=== PATIENT | female | born 1995 | race African-American/Black ===

== ENCOUNTER 2017-01-08 09:53 | Emergency (ER) | payer SELFPAY ==
--- NOTE | 2017-01-08 10:34 | ER Document Report ---
ED General - General Chief Complaint: Abdominal Pain Stated Complaint: ABDOMINAL PAIN Notes: Patient is a 21-year-old female without past medical history who presents with 2 weeks of intermittent diffuse generalized abdominal pain. Does describe pain is intermittent, cramping, moderate discomfort. Nothing improves or worsens her pain. No cyst is had some associated mild nausea without persistent vomiting or diarrhea. No vaginal bleeding or discharge. States her last menstrual period was sometime in November which she believes is atypical for her. No dysuria. No history of abdominal surgeries. She has not seen her primary care doctor regarding today's concerns. TRAVEL OUTSIDE OF THE [place] IN LAST 30 DAYS: No - Related Data Allergies/Adverse Reactions: aspirin Allergy (Verified 01/08/17 10:02) Penicillins Allergy (Verified 01/08/17 10:02) Past Medical History - General Information source: Patient - Social History Smoking Status: Never Smoker Frequency of alcohol use: None Drug Abuse: None Lives with: Spouse/Significant other Family History: Reviewed & Not Pertinent, Arthritis, CVA, DM, Hypertension, Malignancy Patient has suicidal ideation: No Patient has homicidal ideation: No Pulmonary Medical History: Reports: Hx Asthma Endocrine Medical History: Reports: Hx Hypothyroidism Renal/ Medical History: Denies: Hx Peritoneal Dialysis Past Surgical History: Reports: Hx Oral Surgery - Immunizations Immunizations up to date: Yes Hx Diphtheria, Pertussis, Tetanus Vaccination: Yes Review of Systems - Review of Systems Notes: Constitutional: Negative for fever. HENT: Negative for sore throat. Eyes: Negative for visual changes. Cardiovascular: Negative for chest pain. Respiratory: Negative for shortness of breath. Gastrointestinal: Positive for abdominal pain, negative for vomiting or diarrhea. Genitourinary: Negative for dysuria. Musculoskeletal: Negative for back pain. Skin: Negative for rash. Neurological: Negative for headaches, weakness or numbness. 10 point ROS negative except as marked above and in HPI. Physical Exam - Vital signs Vitals: Temp Pulse Resp BP Pulse Ox 98.4 F 127 H 20 110/77 98 01/08/17 10:02 01/08/17 10:02 01/08/17 10:02 01/08/17 10:02 01/08/17 10:02 Patient was not tachycardic to 127 at the time of my assessment. Heart rate was 101 Notes: PHYSICAL EXAMINATION: GENERAL: Well-appearing, well-nourished and in no acute distress. HEAD: Atraumatic, normocephalic. EYES: Pupils equal round and reactive to light, extraocular movements intact, sclera anicteric, conjunctiva are normal. ENT: nares patent, oropharynx clear without exudates. Moist mucous membranes. NECK: Normal range of motion, supple without lymphadenopathy LUNGS: Breath sounds clear to auscultation bilaterally and equal. No wheezes rales or rhonchi. HEART: Regular rate and rhythm without murmurs ABDOMEN: Soft, nontender, normoactive bowel sounds. No guarding, no rebound. No masses appreciated. EXTREMITIES: Normal range of motion, no pitting or edema. No cyanosis. NEUROLOGICAL: No focal neurological deficits. Moves all extremities spontaneously and on command. PSYCH: Normal mood, normal affect. SKIN: Warm, Dry, normal turgor, no rashes or lesions noted. Course - Re-evaluation Re-evalutation: 01/08/17 10:32 Presentation of an overall well-appearing female in no acute distress complaining of intermittent generalized abdominal pain although she has no pain at time of my assessment. She has no pain on palpation of the abdomen in any quadrant. No dysuria, vaginal bleeding or discharge. Differential considerations include ovulatory pain, early , irritable bowel syndrome. Patient has no focal right upper quadrant pain or epigastric pain suggest acute biliary pathology or acute pancreatitis. She is no focal right lower quadrant pain to suggest an acute appendicitis and her clinical history is likewise not clinically consistent with this history. Likewise she has again no persistent lower abdominal pain to suggest a tubo-ovarian abscess, ovarian torsion. 1348-urinalysis demonstrates findings consistent with an acute urinary tract infection. She does not have any constitutional symptoms or flank tenderness to suggest acute pyelonephritis. She will be started on cephalexin. Her test is also positive. A transvaginal ultrasound demonstrates a possible early intrauterine . However, she will be asked to return in 48 hours for repeat quantitative beta hCG to ensure appropriate increase.At this time will discharge with return precautions and follow-up recommendations. Verbal discharge instructions given a the bedside and opportunity for questions given. Medication warnings reviewed. Patient is in agreement with this plan and has verbalized understanding of return precautions and the need for primary care follow-up in the next 24-72 hours. - Vital Signs Vital signs: Temp Pulse Resp BP Pulse Ox 98.4 F 127 H 20 110/77 98 01/08/17 10:02 01/08/17 10:02 01/08/17 10:02 01/08/17 10:02 01/08/17 10:02 - Laboratory Result Diagrams: 01/08/17 10:49 Laboratory results interpreted by me: 01/08/17 01/08/17 10:49 10:49 Beta HCG, Quant 3288.70 H Urine Blood MODERATE H Ur Leukocyte Esterase LARGE H Discharge - Discharge Clinical Impression: Early stage of Urinary tract infection Qualifiers: Urinary tract infection type: acute cystitis Hematuria presence: without hematuria Qualified Code(s): N30.00 - Acute cystitis without hematuria Condition: Good Disposition: HOME, SELF-CARE Additional Instructions: You need to return to the ED or the women's health clinic in 48 hours for a recheck of your hormone level. The ultrasound is unable to see anything at this time because you are too early in your . Please return if you develop severe abdominal pain, bleeding that goes through more than 2 pads for more than 2 hours, pass out, or have any other symptoms that are concerning to you. Please follow-up closely with your OBGYN regarding todays visit. Your urine shows findings consistent with a urinary tract infection. Please take all the antibiotics as directed even if your symptoms have improved. Please follow-up with your primary care physician as needed. Return to emergency room if you develop fever >101F, persistent vomiting, become lethargic , have severe pain in your sides, or any other symptoms that are concerning to you. Prescriptions: Cephalexin Monohydrate [Keflex 500 mg Capsule] 500 mg PO QID #20 capsule Forms: Follow-Up Laboratory Testing
[2017-01-08 11:15] LABS: APPEARANCE,URINE CLOUDY; BILIRUBIN,URINE NEGATIVE (NEGATIVE); GLUCOSE, URINE NEGATIVE (NEGATIVE); KETONES,URINE NEGATIVE (NEGATIVE); LEUKOCYTE ESTERASE,URINE LARGE (NEGATIVE); NITRITE,URINE NEGATIVE (NEGATIVE); PROTEIN,URINE NEGATIVE (NEGATIVE); URINE SPECIFIC GRAVITY 1.018; UROBILINOGEN,URINE NEGATIVE mg/dL (<2.0)
[2017-01-08] MEDS ORDERED: CEPHALEXIN 500 MG CAPSULE PO ONE (11:17)
[2017-01-08 11:20] LABS: ALANINE AMINOTRANSFERASE 38 U/L (9-52); ALBUMIN 3.9 g/dL (3.5-5.0); ALKALINE PHOSPHATASE 70 U/L (38-126); ANION GAP 11 (5-19); ASPARTATE AMINO TRANSFERASE 27 U/L (14-36); BILIRUBIN,DIRECT 0.3 mg/dL (0.0-0.4); BILIRUBIN,TOTAL 0.3 mg/dL (0.2-1.3); BLOOD UREA NITROGEN 10 mg/dL (7-20); CALCIUM 9.7 mg/dL (8.4-10.2); CARBON DIOXIDE 26 mmol/L (22-30); CHLORIDE 105 mmol/L (98-107); CREATININE RESULT 0.75 mg/dL (0.52-1.25); GLUCOSE 99 mg/dL (75-110); POTASSIUM 4.1 mmol/L (3.6-5.0); SODIUM 142.3 mmol/L (137-145); TOTAL PROTEIN 7.3 g/dL (6.3-8.2)
[2017-01-08 14:09] VITALS: BP 136/83
== END 2017-01-08 14:09 | disposition home or self-care (01) ==
LOC: ER 09:53
DX: O23.10 Infections of bladder in pregnancy, unspecified trimester (principal); O26.899 Other specified pregnancy related conditions, unspecified trimester; R10.84 Generalized abdominal pain; R11.0 Nausea; O99.519 Diseases of the respiratory system complicating pregnancy, unspecified trimester; J45.909 Unspecified asthma, uncomplicated; Z3A.00 Weeks of gestation of pregnancy not specified; Z88.6 Allergy status to analgesic agent; Z88.0 Allergy status to penicillin
CPT/HCPCS: 36415; 76817; 80053; 81001; 84702; 87086; 87088; 87186; 99284

== ENCOUNTER 2017-02-01 22:23 | Observation (INO) | payer MEDICAID ==
[2017-02-01] MEDS ORDERED: ONDANSETRON HCL INJ/PF 4 MG/2 ML SDV IV ONE (23:24)
[2017-02-01] MEDS: NORMAL SALINE 1000 ML 1,000 ML IV PRN (23:44)
--- NOTE | 2017-02-01 23:50 | ER Document Report ---
ED General - General Chief Complaint: Vag Bleeding, +preg <12wks Stated Complaint: VAGINAL BLEEDING Time Seen by Provider: 02/01/17 23:24 Information source: Patient, Emergency Med Personnel TRAVEL OUTSIDE OF THE [place] IN LAST 30 DAYS: No - HPI Notes: Patient is a 21-year-old black female presents emergency department with report of being 9 weeks and presents with heavy vaginal bleeding and midline does help pelvic pain that started 2 hours prior to arrival. Patient reports minimal vaginal spotting before that time. Patient had blood pressure 99 systolic on initial arrival, then she went to sit on the toilet had moderate amount of blood clots and felt nauseated and vomited once without blood, then was near syncopal. Staff was called into the room and we transitioned the patient to the bed where measured blood pressure was 124 systolic. Patient reports mild posterior pelvic pain. Patient is a With care at the health department, no prior ultrasound or other blood studies performed. - Related Data Allergies/Adverse Reactions: aspirin Allergy (Verified 01/08/17 10:02) Penicillins Allergy (Verified 01/08/17 10:02) Past Medical History - General Information source: Patient - Social History Smoking Status: Never Smoker Frequency of alcohol use: None Drug Abuse: None Lives with: Family Family History: Reviewed & Not Pertinent, Arthritis, CVA, DM, Hypertension, Malignancy Pulmonary Medical History: Reports: Hx Asthma Endocrine Medical History: Reports: Hx Hypothyroidism Renal/ Medical History: Denies: Hx Peritoneal Dialysis Past Surgical History: Reports: Hx Oral Surgery - Immunizations Immunizations up to date: Yes Hx Diphtheria, Pertussis, Tetanus Vaccination: Yes Review of Systems - Review of Systems Notes: REVIEW OF SYSTEMS: CONSTITUTIONAL : Denies fever, chills, or sweats. Denies recent illness. EENT: Denies eye, ear, throat, or mouth pain or symptoms. Denies nasal or sinus congestion or discharge. Denies throat, tongue, or mouth swelling or difficulty swallowing. CARDIOVASCULAR: Denies chest pain. Denies palpitations or racing or irregular heart beat. Denies ankle edema. RESPIRATORY: Denies cough, cold, or chest congestion. Denies shortness of breath, difficulty breathing, or wheezing. GASTROINTESTINAL: Denies abdominal distention. Denies diarrhea. Denies blood in vomitus, stools, or per rectum. Denies black, tarry stools. Denies constipation. GENITOURINARY: Denies difficulty urinating, painful urination, burning, frequency, blood in urine, or discharge. FEMALE GENITOURINARY: Denies vaginal discharge or odor. MUSCULOSKELETAL: Denies back or neck pain or stiffness. Denies joint pain or swelling. SKIN: Denies rash, lesions or sores. HEMATOLOGIC : Denies easy bruising or bleeding. LYMPHATIC: Denies swollen, enlarged glands. NEUROLOGICAL: Denies confusion or altered mental status. Denies passing out or loss of consciousness. Denies dizziness or lightheadedness. Denies headache. Denies paralysis or loss of use of either side. Denies problems with gait or speech. Denies sensory loss, numbness, or tingling. Denies seizures. Patient reports generalized weakness. PSYCHIATRIC: Denies anxiety or stress. Denies depression, suicidal ideation, or homicidal ideation. ALL OTHER SYSTEMS REVIEWED AND NEGATIVE. Dictation was performed using [email or web address] voice recognition software Physical Exam - Vital signs Vitals: Temp Pulse BP Pulse Ox 98.5 F 124 H 98/66 L 100 02/01/17 22:31 02/01/17 22:31 02/01/17 22:31 02/01/17 22:31 - Notes Notes: PHYSICAL EXAMINATION: GENERAL: Well-appearing, well-nourished and in no acute distress. HEAD: Atraumatic, normocephalic. EYES: Pupils equal round and reactive to light, extraocular movements intact, conjunctiva are normal. ENT: Nares patent, oropharynx clear without exudates. Moist mucous membranes. NECK: Normal range of motion, supple without lymphadenopathy LUNGS: Breath sounds clear to auscultation bilaterally and equal. No wheezes rales or rhonchi. HEART: Regular rate and rhythm without murmurs ABDOMEN: Soft, nondistended abdomen. No guarding, no rebound. No masses appreciated. Female : Tender to the lower midline pelvic region. Moderate bleeding and clots noted on exam. Cervix is nulliparous but slightly open and tender on exam. There is some uterine tenderness also noted. No adnexal mass or obvious tenderness noted. Musculoskeletal: Normal range of motion, no pitting or edema. No cyanosis. Mild pain to the posterior midline lower back. No CVA tenderness. NEUROLOGICAL: Cranial nerves grossly intact. Normal speech, normal gait. Normal sensory, motor exams PSYCH: Normal mood, normal affect. SKIN: Warm, Dry, normal turgor, no rashes or lesions noted. Course - Re-evaluation Re-evalutation: 02/01/17 23:55 Normal saline bolus given. Patient given Zofran and Dilaudid for pain. 02/02/17 02:52 Patient with continued but improved bleeding. Patient was given 2 L normal saline and her systolic blood pressure was 102 on repeat exam although pulse rate was in the 90s. Patient still complained of pain and reports soaking approximately 8 pads while in the emergency department with continued bleeding. Ultrasound studies were reviewed. Patient shows a mild anemia, which may not reflect the full extent of her acute blood loss. Blood type O+ Type and screen was ordered on initial evaluation. No obvious clinical Suspicion for ectopic . Discussion was undertaken with the patient and her family that she may need a D& C performed. She last ate at 1900 and has been kept n.p.o. Discussion was undertaken with Dr. Abhijit White who agrees to evaluate patient further in the emergency department. 02/02/17 02:52 - Vital Signs Vital signs: Temp Pulse Resp BP Pulse Ox 98.2 F 90 23 H 99/56 L 98 02/02/17 02:00 02/02/17 02:00 02/02/17 02:01 02/02/17 02:43 02/02/17 03:00 - Laboratory Result Diagrams: 02/02/17 00:00 02/02/17 00:00 Laboratory results interpreted by me: 02/02/17 02/02/17 00:00 00:00 WBC 15.5 H Hgb 9.8 L Hct 32.1 L MCV 77 L MCH 23.4 L MCHC 30.4 L RDW 16.9 H Absolute Neutrophils 11.3 H Glucose 112 H Albumin 3.2 L Beta HCG, Quant 36391.00 H Discharge - Discharge Clinical Impression: Incomplete miscarriage with blood clot, Near syncope Anemia Qualifiers: Anemia type: unspecified type Qualified Code(s): D64.9 - Anemia, unspecified Condition: Stable Disposition: ADMITTED OBSERVATION Admitting Provider: [facility] Admitted: Post
[2017-02-01] MEDS ORDERED: HYDROMORPHONE HCL INJ/PF 2 MG/ML AMPULE IV ONE (23:53)
[2017-02-02 00:28] LABS: PROTHROMBIN TIME 13.9 SEC (11.4-15.4)
[2017-02-02 00:36] LABS: ALANINE AMINOTRANSFERASE 29 U/L (9-52); ALBUMIN 3.2 g/dL (3.5-5.0); ALKALINE PHOSPHATASE 51 U/L (38-126); ANION GAP 8 (5-19); ASPARTATE AMINO TRANSFERASE 21 U/L (14-36); BILIRUBIN,DIRECT 0.3 mg/dL (0.0-0.4); BILIRUBIN,TOTAL 0.3 mg/dL (0.2-1.3); BLOOD UREA NITROGEN 13 mg/dL (7-20); CALCIUM 8.8 mg/dL (8.4-10.2); CARBON DIOXIDE 24 mmol/L (22-30); CHLORIDE 107 mmol/L (98-107); CREATININE RESULT 0.81 mg/dL (0.52-1.25); GLUCOSE 112 mg/dL (75-110); POTASSIUM 4.3 mmol/L (3.6-5.0); SODIUM 139.2 mmol/L (137-145); TOTAL PROTEIN 6.3 g/dL (6.3-8.2)
[2017-02-02] MEDS: NORMAL SALINE 1000 ML 1,000 ML IV PRN (00:54)
[2017-02-02 01:14] LABS: ABSOLUTE BASOPHILS # (AUTO) 0.1 10^3/uL (0.0-0.2); ABSOLUTE LYMPHOCYTES (AUTO) 3.3 10^3/uL (0.5-4.7); ABSOLUTE MONOCYTES (AUTO) 0.8 10^3/uL (0.1-1.4); ABSOLUTE NEUT (AUTO) 11.3 10^3/uL (1.7-8.2); BASOPHILS % (AUTO) 0.4 % (0-2); EOSINOPHILS % (AUTO) 0.1 % (0-6); HEMATOCRIT 32.1 % (36.0-47.0); HEMOGLOBIN 9.8 g/dL (12.0-15.5); HGB HCT DIFFERENCE -2.7; LYMPHOCYTES % (AUTO) 21.2 % (13-45); MEAN CORPUSCULAR HEMOGLOBIN 23.4 pg (27.0-33.4); MEAN CORPUSCULAR HGB CONC 30.4 g/dL (32.0-36.0); MEAN CORPUSCULAR VOLUME 77 fl (80-97); MONOCYTES % (AUTO) 5.2 % (3-13); RED BLOOD COUNT 4.17 10^6/uL (3.72-5.28); RED CELL DISTRIBUTION WIDTH 16.9 % (11.5-14.0); SEGMENTED NEUTROPHILS % (AUTO) 73.1 % (42-78); WHITE BLOOD COUNT 15.5 10^3/uL (4.0-10.5)
--- NOTE | 2017-02-02 01:24 | RADIOLOGY REPORT (SQ) ---
EXAM DESCRIPTION: U/S OB TRANSVAG W/DOPPLER COMPLETED DATE/TIME: 02/02/2017 1:07 am REASON FOR STUDY: 9 weeks with bleeding, near syncope COMPARISON: 01/08/2017. TECHNIQUE: Transvaginal and transabdominal static and realtime grayscale images acquired of the pelv is. Additional selected spectral and color Doppler images recorded. All images stored on PACs. BHCG: Pending. LIMITATIONS: None. FINDINGS: UTERUS: No visualized intrauterine . Heterogeneous thickened endometrial cavity measuring 3.0 cm with minimal vascularity demonstrated with color Doppler ultrasound. There is a sma ll hypoechoic component, nonspecific measuring up to 0.6 cm in mean diameter. No yolk sac. No pole. No direct evidence of a viable gestation. RIGHT ADNEXA: Normal 2.8 cm ovary with normal vascular flow. No adnexal free fluid. No adnexal masses. LEFT ADNEXA: Not visualized. FREE FLUID: Minimal. OTHER: No other significant finding. IMPRESSION: 3.0 cm heterogeneous thickened endometrial cavity may indicate hemorrhage/clot. NO VISU ALIZED INTRA- OR EXTRAUTERINE . Differential diagnosis includes occult early viable gestation, gestational loss, or occult ectopic ge station. ECTOPIC CANNOT BE EXCLUDED. FOLLOW-UP ULTRASOUND AND SERIAL BHCG LEVELS STRONGLY RECOMMENDED TO ACCURATELY ASSESS STATU S. TECHNICAL DOCUMENTATION: JOB ID: [id number] [employer]- All Rights Reserved
[2017-02-02] MEDS ORDERED: POTASSI CL 20 MEQ/1/2NS 1L 1,000 ML IV ONE (01:45)
[2017-02-02] MEDS ORDERED: HYDROMORPHONE HCL INJ/PF 2 MG/ML AMPULE IV ONE (02:16)
[2017-02-02] MEDS ORDERED: RINGERS SOLUTION,LACTATED 1,000 ML IV PRN (04:48)
[2017-02-02] MEDS ORDERED: HYDROMORPHONE HCL INJ/PF 2 MG/ML AMPULE IV PRN (04:49)
[2017-02-02] MEDS ORDERED: MISOPROSTOL 0.2 MG TABLET ONE (04:50)
[2017-02-02] MEDS ORDERED: MISOPROSTOL 0.2 MG TABLET PO ONE (05:00)
[2017-02-02 07:05] LABS: ABSOLUTE BASOPHILS # (AUTO) 0.1 10^3/uL (0.0-0.2); ABSOLUTE LYMPHOCYTES (AUTO) 3.7 10^3/uL (0.5-4.7); ABSOLUTE MONOCYTES (AUTO) 0.7 10^3/uL (0.1-1.4); ABSOLUTE NEUT (AUTO) 9.8 10^3/uL (1.7-8.2); BASOPHILS % (AUTO) 0.7 % (0-2); EOSINOPHILS % (AUTO) 0.1 % (0-6); HEMATOCRIT 30.3 % (36.0-47.0); HEMOGLOBIN 9.4 g/dL (12.0-15.5); HGB HCT DIFFERENCE -2.1; LYMPHOCYTES % (AUTO) 25.6 % (13-45); MEAN CORPUSCULAR HEMOGLOBIN 24.3 pg (27.0-33.4); MEAN CORPUSCULAR VOLUME 79 fl (80-97); RED BLOOD COUNT 3.86 10^6/uL (3.72-5.28); RED CELL DISTRIBUTION WIDTH 16.7 % (11.5-14.0); SEGMENTED NEUTROPHILS % (AUTO) 68.6 % (42-78); WHITE BLOOD COUNT 14.3 10^3/uL (4.0-10.5)
[2017-02-02 07:16] LABS: ANION GAP 8 (5-19); BLOOD UREA NITROGEN 11 mg/dL (7-20); CALCIUM 8.1 mg/dL (8.4-10.2); CARBON DIOXIDE 25 mmol/L (22-30); CHLORIDE 105 mmol/L (98-107); CREATININE RESULT 0.71 mg/dL (0.52-1.25); GLUCOSE 102 mg/dL (75-110); POTASSIUM 4.2 mmol/L (3.6-5.0); SODIUM 138.2 mmol/L (137-145)
--- NOTE | 2017-02-02 09:46 | PDOC PROGRESS REPORT ---
Subjective Subjective:: Pt reports feeling better. 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, minimal pain Physical Exam - Physical Exam Vital Signs: Temp Pulse Resp BP Pulse Ox 98.0 F 75 16 98/53 L 100 02/02/17 09:09 02/02/17 09:09 02/02/17 09:09 02/02/17 09:09 02/02/17 09:09 Intake & Output 02/01/17 02/02/17 02/03/17 06:59 06:59 06:59 Output Total 200 Balance -200 Weight 126.8 kg General appearance: PRESENT: no acute distress, cooperative, well-developed Result Laboratory Results: 02/02/17 06:22 02/02/17 06:22 02/02/17 02/02/17 06:22 06:22 WBC 14.3 H RBC 3.86 Hgb 9.4 L Hct 30.3 L MCV 79 L MCH 24.3 L MCHC 31.0 L RDW 16.7 H Plt Count 233 Seg Neutrophils % 68.6 Lymphocytes % 25.6 Monocytes % 5.0 Eosinophils % 0.1 Basophils % 0.7 Absolute Neutrophils 9.8 H Absolute Lymphocytes 3.7 Absolute Monocytes 0.7 Absolute Eosinophils 0.0 Absolute Basophils 0.1 Sodium 138.2 Potassium 4.2 Chloride 105 Carbon Dioxide 25 Anion Gap 8 BUN 11 Creatinine 0.71 Est GFR ( Amer) > 60 Est GFR (Non-Af Amer) > 60 Glucose 102 Calcium 8.1 L Impressions: Transvaginal US 02/01/17 23:43 IMPRESSION: 3.0 cm heterogeneous thickened endometrial cavity may indicate hemorrhage/clot. NO VISUALIZED INTRA- OR EXTRAUTERINE . Differential diagnosis includes occult early viable gestation, gestational loss , or occult ectopic gestation. ECTOPIC CANNOT BE EXCLUDED. FOLLOW-UP ULTRASOUND AND SERIAL BHCG LEVELS STRONGLY RECOMMENDED TO ACCURATELY ASSESS STATUS. Assessment & Plan - Diagnosis (1) Incomplete miscarriage with blood clot Is this a current diagnosis for this admission?: Yes (2) Anemia Qualifiers: Anemia type: unspecified type Qualified Code(s): D64.9 - Anemia, unspecified Is this a current diagnosis for this admission?: Yes - Time Time Spent with patient: Less than 15 minutes Critical Time spent with patient: Less than 15 minutes Anticipated discharge: Home Within: within 24 hours - Will d/c home and have pt f/u with Dr White in 1 week SAB precautions given
[2017-02-02 12:56] VITALS: BP 93/46
--- NOTE | 2017-03-22 13:34 | DISCHARGE SUMMARY E ---
Discharge Summary NAME: LEVON MILTON : 1995 AGE: 21Y ADMITTED: 02/02/2017 DISCHARGED: 02/02/2017 REASON FOR ADMISSION: Patient with 10 week spontaneous miscarriage with heavy vaginal bleeding. HISTORY AND PHYSICAL: See Dr. White's History and Physical from 02/01/2017 for full details. HOSPITAL COURSE: The patient is admitted to the Women's Surgical Floor for her care. She is given a total of approximately 800 mL of Cytotec to help the uterus clam down and resolve the bleeding. Following administration of the Cytotec, patient's bleeding goes from heavy to minimal. Patient's hemoglobin is stable. She is asymptomatic and since the bleeding became minimal, patient is requesting to be discharged home. Patient is in stable condition and therefore was discharged home. DISCHARGE INSTRUCTIONS: 1. Discharge the patient home. 2. Diet is regular. 3. Activity is pelvic rest x2 weeks. 4. Followup interval is [address] White. SPECIAL INSTRUCTIONS: Patient instructed to call MD if temperature greater than 100.5, heavy vaginal bleeding reoccur. MEDICATIONS ON DISCHARGE: Motrin. DICTATING PHYSICIAN: Al Galloway DO [id number] PHY#: [id number] ID: [id number] JOB#: [id number] ACCT: [id number] cc:Al Galloway D.O. >
== END 2017-02-02 16:13 | disposition home or self-care (01) ==
LOC: ER 22:23 → EH 02-02 03:30 → UNDOADMOB 02-02 04:02 → EH 02-02 04:34 → 2N 02-02 04:34
PROVIDERS: ADMIT Obstetrics & Gynecology; ATTEND Obstetrics & Gynecology
DX: O03.35 Other venous complications following incomplete spontaneous abortion (principal); O03.39 Incomplete spontaneous abortion with other complications; O99.011 Anemia complicating pregnancy, first trimester; R55 Syncope and collapse; R11.2 Nausea with vomiting, unspecified; O99.281 Endocrine, nutritional and metabolic diseases complicating pregnancy, first trimester; E03.9 Hypothyroidism, unspecified; Z3A.09 9 weeks gestation of pregnancy; Z79.899 Other long term (current) drug therapy
CPT/HCPCS: 96376; 99285; 96361; 96375; 96365; 86900; 86901; 36415; 86850; 84702; 85025; 85610; 80048; 80053; 76817; 93976; G0378 ×2; J3480; J1170; J2405; J7030 ×2; J7120

== ENCOUNTER 2017-02-11 09:49 | Day surgery (SDC) | payer MEDICAID ==
--- NOTE | 2017-02-11 11:16 | RADIOLOGY REPORT (SQ) ---
EXAM DESCRIPTION: U/S OB TRANSVAGINAL W/O DOP COMPLETED DATE/TIME: 02/11/2017 11:01 am REASON FOR STUDY: MISSED AB O03.9 COMPLETE OR UNSP SPONTANEOUS WITHOUT COMPLICA COMPARISON: None. TECHNIQUE: Transvaginal static and realtime grayscale images acquired of the pelvis. Additional jeanie cted spectral and color Doppler images recorded. All images stored on PACs. bHCG: Not applicable. LIMITATIONS: None. FINDINGS: No identifiable live gestation is present. There are retained products of conception. UTERUS: 76 x 55 x 39 mm. No uterine masses. CERVICAL LENGTH: 2.7 cm RIGHT ADNEXA: Normal ovary, 32 x 23 x 26 mm. No adnexal free fluid. No adnexal masses. LEFT ADNEXA: Normal ovary, 31 x 21 x 16 mm. No adnexal free fluid. No adnexal masses. FREE FLUID: None. OTHER: The endometrium is thickened at 17 mm. Products of conception are present. IMPRESSION: Spontaneous with retained products of conception. TECHNICAL DOCUMENTATION: JOB ID: [id number] [employer]- All Rights Reserved
[2017-02-11] MEDS ORDERED: DEXMEDETOMIDINE INJ 80 MCG/20 ML VIAL IV ONE (11:21)
[2017-02-11] MEDS ORDERED: FENTANYL CITRATE INJ/PF 100 MCG/2 ML AMPUL ONE (11:21)
[2017-02-11] MEDS ORDERED: PROPOFOL INJ 200 MG/20 ML VIAL IV ONE (11:21)
[2017-02-11] MEDS ORDERED: ACETAMINOPHEN 100 ML IV ONE (11:21)
[2017-02-11] MEDS ORDERED: MIDAZOLAM 2 MG/2 ML INJ ONE (11:21)
[2017-02-11 11:58] LABS: HEMATOCRIT 26.4 % (36.0-47.0); HEMOGLOBIN 8.3 g/dL (12.0-15.5); HGB HCT DIFFERENCE -1.5; MEAN CORPUSCULAR HEMOGLOBIN 24.1 pg (27.0-33.4); MEAN CORPUSCULAR HGB CONC 31.6 g/dL (32.0-36.0); MEAN CORPUSCULAR VOLUME 76 fl (80-97); RED BLOOD COUNT 3.45 10^6/uL (3.72-5.28); RED CELL DISTRIBUTION WIDTH 16.8 % (11.5-14.0); WHITE BLOOD COUNT 8.4 10^3/uL (4.0-10.5)
[2017-02-11 12:12] LABS: APPEARANCE,URINE SLIGHTLY-CLOUDY; BILIRUBIN,URINE NEGATIVE (NEGATIVE); GLUCOSE, URINE NEGATIVE (NEGATIVE); KETONES,URINE NEGATIVE (NEGATIVE); LEUKOCYTE ESTERASE,URINE LARGE (NEGATIVE); NITRITE,URINE NEGATIVE (NEGATIVE); PROTEIN,URINE NEGATIVE (NEGATIVE); URINE SPECIFIC GRAVITY 1.006; UROBILINOGEN,URINE NEGATIVE mg/dL (<2.0); WBC,URINE 20-30 /HPF
[2017-02-11 12:13] LABS: BACTERIA,URINE TRACE /HPF; TRICHOMONAS,URINE PRESENT
[2017-02-11] MEDS ORDERED: FENTANYL CITRATE INJ/PF 100 MCG/2 ML AMPUL IV PRN ×3 (12:13)
[2017-02-11] MEDS ORDERED: ONDANSETRON HCL INJ/PF 4 MG/2 ML SDV IV PRN (12:13)
[2017-02-11] MEDS ORDERED: MEPERIDINE HCL/PF INJ 25 MG/1 ML DISP.SYRIN IV PRN (12:13)
[2017-02-11] MEDS ORDERED: DIPHENHYDRAMINE HCL 50 MG/ML VIAL IV PRN (12:13)
[2017-02-11] MEDS ORDERED: OXYCODONE-ACETAMINOPHEN 5-325 MG TABLET PO PRN ×2 (12:13)
[2017-02-11] MEDS ORDERED: MORPHINE SULFATE 10 MG/ML INJ IV PRN (12:13)
[2017-02-11] MEDS ORDERED: PROMETHAZINE HCL INJ 25 MG/1 ML VIAL IV PRN ×2 (12:13)
[2017-02-11 14:25] VITALS: BP 107/71
[2017-02-11] MEDS ORDERED: DEXAMETHASONE SOD PHOSPHATE INJ 4 MG/1 ML VIAL ONE (19:30)
[2017-02-11] MEDS ORDERED: SUCCINYLCHOLINE CHLORIDE INJ 200 MG/10 ML VIAL ONE (19:30)
[2017-02-11] MEDS ORDERED: LIDOCAINE 2% INJ-PF (20 MG/ML) 10 ML AMPUL ONE (19:30)
[2017-02-11] MEDS ORDERED: KETOROLAC TROMETHAMINE 60 MG/2 ML SDV ONE (19:30)
[2017-02-11] MEDS ORDERED: ONDANSETRON HCL INJ/PF 4 MG/2 ML SDV ONE (19:30)
[2017-02-11] MEDS ORDERED: METOCLOPRAMIDE HCL INJ/PF 10 MG/2 ML SDV ONE (19:30)
--- NOTE | 2017-02-12 03:28 | OPERATIVE REPORT E ---
Operative Report NAME: LEVON MILTON : 1995 AGE: 21Y DATE OF SURGERY: 02/11/2017 ROOM: PREOPERATIVE DIAGNOSIS: Incomplete AB, retained products of conception. POSTOPERATIVE DIAGNOSIS: Incomplete AB, retained products of conception. PROCEDURE PERFORMED: Suction, dilation and curettage. SURGEON: EMMA ARAGON M.D. ANESTHESIA: Dr. Lewis with general. ESTIMATED BLOOD LOSS: 50 mL. COMPLICATIONS: None. SPECIMENS REMOVED: Products of conception. FINDINGS: Thickened endometrium noted on ultrasound of 17 mm with positive products of conception tissue noted. At the time of procedure, uterus sounded to 10.5 cm and a moderate amount of decidual tissue noted from the procedure. PROCEDURE IN DETAIL: The patient was taken to the operating room, prepared and draped in a normal sterile fashion in a dorsal lithotomy position. Under sterile conditions, an in and out catheter of approximately 20 mL of clear urine. A sterile speculum was then placed into the vagina, and the cervix was located and grasped with a single tooth tenaculum on the anterior lip. The cervix was prepped with Betadine. The uterus was then sounded to approximately 10.5 cm. The cervix was then serially dilated to a 22-Maltese. Using a sharp curettage, I began curetting the endometrial cavity with a moderate amount decidual tissue noted after several passes, although I thought that initially we could do the procedure with simple sharp curettage, we continued to get a moderate amount of tissue; therefore, I did switch to a suction curettage. Then an 8 mm suction curette was placed through the cervix and with 3 passes, another small amount of decidual tissue was obtained without any complications. The suction curettage was then removed. The cervix was inspected and found to be just with slight ooze at the end of the procedure, otherwise, hemostatic. Sponge, lap, and needle counts were correct x2. Instruments were removed, and the patient was taken to recovery in stable condition. DICTATING PHYSICIAN: EMMA ARAGON M.D. [id number] PHY#: [id number] ID: [id number] JOB#: [id number] ACCT: [id number] cc:EMMA ARAGON M.D. > [facility]
== END 2017-02-11 14:26 | disposition home or self-care (01) ==
LOC: OROUT 09:49
PROVIDERS: ATTEND Obstetrics & Gynecology
PROC: 10D17ZZ Extraction of Products of Conception, Retained, Via Natural or Artificial Opening (ICD-10-PCS; principal; 2017-02-11 11:15)
DX: O03.9 Complete or unspecified spontaneous abortion without complication (principal); Z13.0 Encounter for screening for diseases of the blood and blood-forming organs and certain disorders involving the immune mechanism; J45.909 Unspecified asthma, uncomplicated; E07.9 Disorder of thyroid, unspecified; E66.9 Obesity, unspecified; K21.9 Gastro-esophageal reflux disease without esophagitis; Z88.6 Allergy status to analgesic agent; Z79.899 Other long term (current) drug therapy; Z68.41 Body mass index [BMI] 40.0-44.9, adult
CPT/HCPCS: 86900; 86901; 36415; 86850; 85027; 81001; 88305 ×2; 76817; 59812; J2250; J1100; J1885; J3010; J2765; J0330; J2405; J2704; J3490 ×2; J0131; 1965

== ENCOUNTER 2017-06-20 04:56 | Emergency (ER) | payer MEDICAID ==
[2017-06-20 05:36] LABS: AMORPHOUS SEDIMENT,URINE TRACE /HPF; APPEARANCE,URINE SLIGHTLY-CLOUDY; BILIRUBIN,URINE NEGATIVE (NEGATIVE); GLUCOSE, URINE NEGATIVE (NEGATIVE); KETONES,URINE NEGATIVE (NEGATIVE); LEUKOCYTE ESTERASE,URINE MODERATE (NEGATIVE); NITRITE,URINE NEGATIVE (NEGATIVE); PROTEIN,URINE NEGATIVE (NEGATIVE); URINE SPECIFIC GRAVITY 1.015; UROBILINOGEN,URINE NEGATIVE mg/dL (<2.0)
[2017-06-20] MEDS ORDERED: NITROFURANTOIN MONOHYD/M-CRYST 100 MG CAPSULE PO ONE (05:44)
--- NOTE | 2017-06-20 05:44 | ER Document Report ---
ED GI/ - General Mode of Arrival: Ambulatory Information source: Patient TRAVEL OUTSIDE OF THE [place] IN LAST 30 DAYS: No - HPI Patient complains to provider of: Dysuria, Vaginal discharge, Vaginal pain Onset: Other - 1 week ago Associated symptoms: Other - see notes above - General Chief Complaint: Urinary Problem Stated Complaint: PAINFUL URINATION,VAGINAL IRRITATION Time Seen by Provider: 06/20/17 05:40 Notes: 21 year old female presents to the ED complaining of dysuria, vaginal irritation , vaginal discharge, and pain radiating from the groin to the back which started 1 week ago. Patient denies any vaginal bleeding. Patient states that she believes that she has a UTI. Patient has no concerns over STDs. Patient denies any new sexual partners. (ABEBA MESSINA) - Related Data Allergies/Adverse Reactions: aspirin Allergy (Verified 06/20/17 04:59) Penicillins Allergy (Verified 06/20/17 04:59) Past Medical History - General Information source: Patient - Social History Smoking Status: Never Smoker Chew tobacco use (# tins/day): No Frequency of alcohol use: None Drug Abuse: None Family History: Reviewed & Not Pertinent, Arthritis, CVA, DM, Hypertension, Malignancy - Past Medical History Cardiac Medical History: Denies: Hx Coronary Artery Disease, Hx Heart Attack, Hx Hypertension Pulmonary Medical History: Reports: Hx Asthma Denies: Hx Bronchitis, Hx COPD, Hx Pneumonia Neurological Medical History: Reports: Hx Seizures Endocrine Medical History: Reports: Hx Hypothyroidism Renal/ Medical History: Denies: Hx Peritoneal Dialysis GI Medical History: Reports: Hx Gastroesophageal Reflux Disease Musculoskeltal Medical History: Denies Hx Arthritis Psychiatric Medical History: Reports: Hx Depression Past Surgical History: Reports: Hx Oral Surgery - Immunizations Immunizations up to date: Yes Hx Diphtheria, Pertussis, Tetanus Vaccination: Yes Review of Systems - Review of Systems Constitutional: No symptoms reported EENT: No symptoms reported Cardiovascular: No symptoms reported Respiratory: No symptoms reported Gastrointestinal: No symptoms reported Genitourinary: See HPI, Dysuria, Flank pain Female Genitourinary: See HPI, Vaginal discharge, Other - vaginal irritation. denies: Vaginal bleeding Musculoskeletal: No symptoms reported Skin: No symptoms reported Hematologic/Lymphatic: No symptoms reported Neurological/Psychological: No symptoms reported -: Yes All other systems reviewed and negative Physical Exam - Notes Notes: GENERAL: Alert, interacts well. No acute distress. HEAD: Normocephalic, atraumatic. EYES: Pupils equal, round, and reactive to light. Extraocular movements intact. ENT: Oral mucosa moist, tongue midline. NECK: Full range of motion. Supple. Trachea midline. LUNGS: Clear to auscultation bilaterally, no wheezes, rales, or rhonchi. No respiratory distress. HEART: Regular rate and rhythm. No murmurs, gallops, or rubs. ABDOMEN: Soft, non-tender. Non-distended. Bowel sounds present in all 4 quadrants. EXTREMITIES: Moves all 4 extremities spontaneously. No edema. No cyanosis. NEUROLOGICAL: Alert and oriented x3. Normal speech. PSYCH: Normal affect, normal mood. SKIN: Warm, dry, normal turgor. No rashes or lesions noted. (ABEBA MESSINA) Course - Re-evaluation Re-evalutation: 06/20/17 05:45 Urinalysis shows moderate leukocyte esterase, 1 WBC, test is negative. Patient will be treated with Macrobid, discharged home. (JOSÉ MIGUEL VALERIO ) - Laboratory Laboratory results interpreted by me: 06/20/17 05:03 Ur Leukocyte Esterase MODERATE H Discharge - Discharge Clinical Impression: Urinary tract infection Qualifiers: Urinary tract infection type: acute cystitis Hematuria presence: without hematuria Qualified Code(s): N30.00 - Acute cystitis without hematuria Condition: Stable Disposition: HOME, SELF-CARE Instructions: Urinary Tract Infection ([facility]) Prescriptions: Nitrofurantoin/Nitrofuran Mac [Macrobid 100 mg Capsule] 1 tab PO BID #10 capsule Forms: Return to Work Referrals: RAÚL LIZ, SPORTS INFORMATION DIRECTOR-C [Primary Care Provider] - Follow up as needed Scribe Attestation: 06/20/17 06:04 I personally performed the services described in the documentation, reviewed and edited the documentation which was dictated to the scribe in my presence, and it accurately records my words and actions. (JOSÉ MIGUEL VALERIO) Scribe Documentation - Scribe Written by Scribe:: Chi Macias, 06/20/2017 0551 acting as scribe for :: Joe
== END 2017-06-20 06:07 | disposition home or self-care (01) ==
LOC: ER 04:56
DX: N30.00 Acute cystitis without hematuria (principal); J45.909 Unspecified asthma, uncomplicated; Z88.0 Allergy status to penicillin
CPT/HCPCS: 99283; 87086; 81025; 81001; J3490; J8499

== ENCOUNTER 2017-08-01 17:25 | Emergency (ER) | payer MEDICAID ==
[2017-08-01] MEDS ORDERED: TETRACAINE HCL 0.5% OPH SOLN 2 ML OU ONE (19:03)
--- NOTE | 2017-08-01 19:47 | ER Document Report ---
ED Eye Complaint - General Chief Complaint: Eye Problem Stated Complaint: EYE PAIN Time Seen by Provider: 08/01/17 19:01 Mode of Arrival: Ambulatory Information source: Patient TRAVEL OUTSIDE OF THE [place] IN LAST 30 DAYS: No - HPI Patient complains to provider of: possible scratch on corneas Onset: Yesterday Eye location: Bilateral - pt. states she forcefully removed her contact lenses yesterday and thinks she may have scratched her corneas when she did so. - Related Data Allergies/Adverse Reactions: aspirin Allergy (Verified 08/01/17 17:56) Penicillins Allergy (Verified 08/01/17 17:56) Past Medical History - Social History Smoking Status: Never Smoker Cigarette use (# per day): No Chew tobacco use (# tins/day): No Smoking Education Provided: No Frequency of alcohol use: Occasional Drug Abuse: None Family History: Reviewed & Not Pertinent, Arthritis, CVA, DM, Hypertension, Malignancy Patient has suicidal ideation: No Patient has homicidal ideation: No - Past Medical History Cardiac Medical History: Denies: Hx Coronary Artery Disease, Hx Heart Attack, Hx Hypertension Pulmonary Medical History: Reports: Hx Asthma Denies: Hx Bronchitis, Hx COPD, Hx Pneumonia Neurological Medical History: Reports: Hx Seizures Endocrine Medical History: Reports: Hx Hypothyroidism Renal/ Medical History: Denies: Hx Peritoneal Dialysis GI Medical History: Reports: Hx Gastroesophageal Reflux Disease Musculoskeltal Medical History: Denies Hx Arthritis Psychiatric Medical History: Reports: Hx Depression Past Surgical History: Reports: Hx Oral Surgery - Immunizations Immunizations up to date: Yes Hx Diphtheria, Pertussis, Tetanus Vaccination: Yes Review of Systems - Review of Systems Constitutional: No symptoms reported EENT: See HPI, Eye pain Cardiovascular: No symptoms reported Respiratory: No symptoms reported Gastrointestinal: No symptoms reported Physical Exam - Vital signs Vitals: Temp Pulse Resp BP Pulse Ox 99.4 F 104 H 16 122/74 98 08/01/17 17:53 08/01/17 17:53 08/01/17 17:53 08/01/17 17:53 08/01/17 17:53 - HEENT Eyes: Normal Conjunctiva: Normal Cornea: Flourescein stain uptake - there is a small corneal abrasion on the central aspect of both corneas on Wood's lamp Extraocular movements intact: Yes Eyelashes: Normal Pupils: PERRL Visual acuity- Right eye: 20/70 Visual acuity- Left eye: 20/50 Visual acuity- Both eyes: 20/50 Corrective lenses worn: No - Respiratory Respiratory status: No respiratory distress Breath sounds: Normal - Cardiovascular Rhythm: Regular Heart sounds: Normal auscultation Course - Re-evaluation Re-evalutation: 08/01/17 19:44 pt felt much better after tetracaine applied to both eyes. - Vital Signs Vital signs: Temp Pulse Resp BP Pulse Ox 99.4 F 104 H 16 122/74 98 08/01/17 17:53 08/01/17 17:53 08/01/17 17:53 08/01/17 17:53 08/01/17 17:53 Discharge - Discharge Clinical Impression: Corneal abrasion due to contact lens Qualifiers: Laterality: bilateral Qualified Code(s): H18.823 - Corneal disorder due to contact lens, bilateral Condition: Stable Disposition: HOME, SELF-CARE Instructions: Corneal Abrasion ([facility]), Eyedrop Use ([facility]) Additional Instructions: rest, take meds as prescribed, return if worse Prescriptions: Gentamicin Sulfate [Genoptic] 5 ml OP BID #7 drops
[2017-08-01 20:27] VITALS: BP 122/67
== END 2017-08-01 20:20 | disposition home or self-care (01) ==
LOC: ER 17:25
DX: H18.823 Corneal disorder due to contact lens, bilateral (principal); H57.13 Ocular pain, bilateral
CPT/HCPCS: 99283; J3490

== ENCOUNTER 2017-11-28 05:31 | Emergency (ER) | payer MEDICAID ==
[2017-11-28 05:38] VITALS: BP 132/78
--- NOTE | 2017-11-28 06:44 | ER Document Report ---
ED GI/ - General Chief Complaint: Vaginal Bleeding Stated Complaint: ABDOMINAL PAIN Time Seen by Provider: 11/28/17 06:21 Information source: Patient Notes: HPI-22 years old female presents today with abdominal cramps and bleeding for the last 2 days with forming clots. She had a regular menstrual cycle last month during the same time. But he did not have any cramps old blood clot therefore concerned and came to the ED. Denies any dysuria frequency urgency denies any fever chills or other constitutional symptoms. REVIEW OF SYSTEMS: CONSTITUTIONAL : Denies fever, chills, or sweats. Denies recent illness. EENT: Denies eye, ear, throat, or mouth pain or symptoms. Denies nasal or sinus congestion or discharge. Denies throat, tongue, or mouth swelling or difficulty swallowing. CARDIOVASCULAR: Denies chest pain. Denies palpitations or racing or irregular heart beat. Denies ankle edema. RESPIRATORY: Denies cough, cold, or chest congestion. Denies shortness of breath, difficulty breathing, or wheezing. GASTROINTESTINAL: Denies abdominal pain or distention. Denies nausea, vomiting , or diarrhea. Denies blood in vomitus, stools, or per rectum. Denies black, tarry stools. Denies constipation. GENITOURINARY: Denies difficulty urinating, painful urination, burning, frequency, blood in urine, or discharge. FEMALE GENITOURINARY: Denies vaginal bleeding, heavy or abnormal periods, irregular periods. Denies vaginal discharge or odor. MUSCULOSKELETAL: Denies back or neck pain or stiffness. Denies joint pain or swelling. SKIN: Denies rash, lesions or sores. HEMATOLOGIC : Denies easy bruising or bleeding. LYMPHATIC: Denies swollen, enlarged glands. NEUROLOGICAL: Denies confusion or altered mental status. Denies passing out or loss of consciousness. Denies dizziness or lightheadedness. Denies headache. Denies weakness or paralysis or loss of use of either side. Denies problems with gait or speech. Denies sensory loss, numbness, or tingling. Denies seizures. PSYCHIATRIC: Denies anxiety or stress. Denies depression, suicidal ideation, or homicidal ideation. ALL OTHER SYSTEMS REVIEWED AND NEGATIVE. PHYSICAL EXAMINATION: GENERAL: Well-appearing, well-nourished and in no acute distress. Obesity HEAD: Atraumatic, normocephalic. EYES: Pupils equal round and reactive to light, extraocular movements intact, conjunctiva are normal. ENT: Nares patent, oropharynx clear without exudates. Moist mucous membranes. NECK: Normal range of motion, supple without lymphadenopathy LUNGS: Breath sounds clear to auscultation bilaterally and equal. No wheezes rales or rhonchi. HEART: Regular rate and rhythm without murmurs ABDOMEN: Soft, nontender, nondistended abdomen. No guarding, no rebound. No masses appreciated. Female : deferred Musculoskeletal: Normal range of motion, no pitting or edema. No cyanosis. NEUROLOGICAL: Cranial nerves grossly intact. Normal speech, normal gait. Normal sensory, motor exams PSYCH: Normal mood, normal affect. SKIN: Warm, Dry, normal turgor, no rashes or lesions noted. Dictation was performed using [employer] voice recognition software TRAVEL OUTSIDE OF THE [place] IN LAST 30 DAYS: No - Related Data Allergies/Adverse Reactions: aspirin Allergy (Verified 08/01/17 17:56) Penicillins Allergy (Verified 08/01/17 17:56) Past Medical History - General Last Menstrual Period: 11/26/2017 - Social History Smoking Status: Never Smoker Cigarette use (# per day): No Chew tobacco use (# tins/day): No Smoking Education Provided: No Frequency of alcohol use: Rare Drug Abuse: None Family History: Reviewed & Not Pertinent, Arthritis, CVA, DM, Hypertension, Malignancy Patient has suicidal ideation: No Patient has homicidal ideation: No - Past Medical History Cardiac Medical History: Denies: Hx Coronary Artery Disease, Hx Heart Attack, Hx Hypertension Pulmonary Medical History: Reports: Hx Asthma - childhood Denies: Hx Bronchitis, Hx COPD, Hx Pneumonia Neurological Medical History: Reports: Hx Seizures Endocrine Medical History: Reports: Hx Hypothyroidism Renal/ Medical History: Denies: Hx Peritoneal Dialysis GI Medical History: Reports: Hx Gastroesophageal Reflux Disease Musculoskeltal Medical History: Denies Hx Arthritis Psychiatric Medical History: Reports: Hx Depression Past Surgical History: Reports: Hx Oral Surgery - Immunizations Immunizations up to date: Yes Hx Diphtheria, Pertussis, Tetanus Vaccination: Yes Review of Systems - Review of Systems Notes: As per history of complain Physical Exam - Vital signs Vitals: Temp Pulse Resp BP Pulse Ox 98.2 F 76 18 132/78 H 99 11/28/17 05:37 11/28/17 05:37 11/28/17 05:37 11/28/17 05:37 11/28/17 05:37 Course - Vital Signs Vital signs: Temp Pulse Resp BP Pulse Ox 98.2 F 76 18 132/78 H 99 11/28/17 05:37 11/28/17 05:37 11/28/17 05:37 11/28/17 05:37 11/28/17 05:37 - Laboratory Laboratory results interpreted by me: UA came back as normal Discharge - Discharge Clinical Impression: Severe menstrual cramps Condition: Fair Disposition: HOME, SELF-CARE Instructions: Dysmenorrhea ([facility]) Prescriptions: Naproxen 500 mg PO BID PRN #30 tablet PRN Reason:
== END 2017-11-28 07:54 | disposition home or self-care (01) ==
LOC: ER 05:31
DX: N94.6 Dysmenorrhea, unspecified (principal); N93.9 Abnormal uterine and vaginal bleeding, unspecified; R10.9 Unspecified abdominal pain
CPT/HCPCS: 81025; 99284

== ENCOUNTER 2018-01-31 13:37 | Emergency (ER) | payer SELFPAY ==
[2018-01-31 13:43] VITALS: BP 124/72
[2018-01-31] MEDS ORDERED: DEXAMETHASONE SOD PHOS INJ 10 MG/1 ML VIAL IM ONE (14:43)
[2018-01-31] MEDS ORDERED: KETOROLAC TROMETHAMINE INJ/PF 30 MG/1 ML SDV IM ONE (14:43)
--- NOTE | 2018-01-31 14:48 | ER Document Report ---
HPI - HPI Pain Level: 3 Notes: Patient is a 22-year-old female with no significant past medical history who presents to the ED complaining of upper bilateral back pain 2 weeks. 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 Patient states that the pain sometimes radiates down her back and feels like a burning sensation at times. Patient also notes some cramping. She has not had any injections or procedures to her back. No history of spinal abscess. She still eating and drinking without difficulties. She is urinating normally and having normal bowel movements. No other concerns or complaints at this time. Denies any headache, fever, neck pain, URI, sore throat, chest pain, palpitations, syncope, cough, shortness of breath, wheeze, dyspnea, abdominal pain, nausea/ vomiting/diarrhea, urinary retention, dysuria, hematuria, loss of control of bowel or bladder, numbness/tingling, saddle anesthesia, muscle paralysis/ weakness, or rash. - ROS Systems Reviewed and Negative: Yes All other systems reviewed and negative - REPRODUCTIVE Reproductive: REPORTS: : Past Medical History - Social History Smoking Status: Never Smoker Chew tobacco use (# tins/day): No Frequency of alcohol use: Occasional Drug Abuse: None Family History: Reviewed & Not Pertinent, Arthritis, CVA, DM, Hypertension, Malignancy Patient has suicidal ideation: No Patient has homicidal ideation: No - Past Medical History Cardiac Medical History: Denies: Hx Coronary Artery Disease, Hx Heart Attack, Hx Hypertension Pulmonary Medical History: Reports: Hx Asthma - childhood Denies: Hx Bronchitis, Hx COPD, Hx Pneumonia Neurological Medical History: Reports: Hx Seizures Endocrine Medical History: Reports: Hx Hypothyroidism Renal/ Medical History: Denies: Hx Peritoneal Dialysis GI Medical History: Reports: Hx Gastroesophageal Reflux Disease Musculoskeltal Medical History: Denies Hx Arthritis Psychiatric Medical History: Reports: Hx Depression Past Surgical History: Reports: Hx Oral Surgery - Immunizations Immunizations up to date: Yes Hx Diphtheria, Pertussis, Tetanus Vaccination: Yes Vertical Provider Document - CONSTITUTIONAL Agree With Documented VS: Yes Notes: PHYSICAL EXAMINATION: GENERAL: Well-appearing, well-nourished and in no acute distress. LUNGS: Breath sounds clear to auscultation bilaterally and equal. No wheezes rales or rhonchi. HEART: Regular rate and rhythm without murmurs, rubs, gallops. Neck: FROM. Non-tender. Spurling negative. ABDOMEN: Soft, nontender, nondistended abdomen. No guarding, no rebound. No masses appreciated. Normal bowel sounds present. No CVA tenderness bilaterally. No pulsatile mass Musculoskeletal: LE's b/l: FROM to passive/active. Strength 5+/5. No deficits noted. No bony tenderness of extremities. Back: FROM to passive/active. Strength 5+/5. No vertebral point tenderness, stepoffs, or deformities. No other bony tenderness, erythema, swelling, or ecchymosis. SLR negative b/l. + mild tenderness to the T-paraspinal mm b/l, correlates with pain described. Mild spasming. No SI jt tenderness. No foot drop Extremities: No cyanosis, clubbing, or edema b/l. Peripheral pulses 2+. Capillary refill less than 2 seconds. NEUROLOGICAL: Normal speech, normal gait. Normal sensory, motor exams. Reflexes 2+ b/l. PSYCH: Normal mood, normal affect. SKIN: Warm, Dry, normal turgor, no rashes or lesions noted. - INFECTION CONTROL TRAVEL OUTSIDE OF THE [place] IN LAST 30 DAYS: No Course - Re-evaluation Re-evalutation: 01/31/18 14:45 Patient is an afebrile, well-hydrated, 22-year-old female who presents to the ED with thoracic back pain, suspect strain with spasm. Vitals are acceptable. PE is otherwise unremarkable for any focal neurological deficits. Patient has no significant tachycardia, tachypnea, or hypoxia. She has no other red flag symptoms. No labs or imaging warranted at this time based on H&P. Decadron and Toradol given today. Low suspicion for any meningitis, fracture, expanding/ ruptured AAA, cauda equina syndrome, epidural mass lesion/abscess, herniated disc causing severe spinal stenosis, or other systemic infection at this time. Patient is aware that this condition can change from initial presentation and that she needs monitor symptoms closely for any acute changes. I will send her home with a prescription for baclofen and naproxen. Conservative measures otherwise for symptoms. Recheck with your PCM in 3-5 days. Consider consult with orthopedic/physical therapy. Return to the ED with any worsening/ concerning symptoms otherwise as reviewed discharge. Patient is in agreement. - Vital Signs Vital signs: Temp Pulse Resp BP Pulse Ox 98.8 F 106 H 14 124/72 100 01/31/18 13:42 01/31/18 13:42 01/31/18 13:42 01/31/18 13:42 01/31/18 13:42 Discharge - Discharge Clinical Impression: Thoracic back pain Qualifiers: Chronicity: acute Back pain laterality: bilateral Qualified Code(s): M54.6 - Pain in thoracic spine Condition: Stable Disposition: HOME, SELF-CARE Instructions: Upper Back Strain ([facility]), Muscle Relaxers ([facility]) Additional Instructions: Rest, Ice, Compression, Elevation Tylenol/ibuprofen as needed Light stretches daily Strength exercises as able Moist heat and massage may help F/u with your PCP in 3-5 days for a recheck Consider consult(s) with Orthopedics/physical therapy for ongoing/worsening symptoms Return to the ED with any worsening symptoms and/or development of fever, headache, chest pain, palpitations, syncope, shortness of breath, trouble breathing, abdominal pain, n/v/d, blood in stool/urine, loss of control of bowel /bladder, urinary retention, muscle weakness/paralysis, saddle anesthesia, numbness/tingling, or other worsening symptoms that are concerning to you. Prescriptions: Baclofen [Baclofen 10 mg Tablet] 5 - 10 mg PO BID PRN #10 tablet PRN Reason: Naproxen 500 mg PO BID PRN #30 tablet PRN Reason: Referrals: ELSIE LITTLE MD [Primary Care Provider] - Follow up as needed [facility] [Provider Group] - Follow up as needed
== END 2018-01-31 15:10 | disposition home or self-care (01) ==
LOC: ER 13:37
DX: O99.89 Other specified diseases and conditions complicating pregnancy, childbirth and the puerperium (principal); M54.6 Pain in thoracic spine; O26.899 Other specified pregnancy related conditions, unspecified trimester; R25.2 Cramp and spasm; Z3A.00 Weeks of gestation of pregnancy not specified
CPT/HCPCS: 99283; 96372; J1885; J1100

== ENCOUNTER 2019-05-02 02:52 | Emergency (ER) | payer BC ==
[2019-05-02] MEDS ORDERED: BUPIVACAINE HCL 0.25% /EPINEPHRINE INJ/PF 30 ML SDV INJ ONE (08:49)
--- NOTE | 2019-05-02 09:30 | ER Document Report ---
ED General - General Chief Complaint: Headache Stated Complaint: MIGRAINE/TOOTHACHE Time Seen by Provider: 05/02/19 08:34 Mode of Arrival: Ambulatory Information source: Patient TRAVEL OUTSIDE OF THE [place] IN LAST 30 DAYS: No - HPI Notes: Patient presents complaining of right sided toothache right face pain and right headache. Been going on for 2 to 3 days. It is severe. It is aching and throbbing. It is constant. It is worse with chewing and better with rest. It does radiate across the right side of her face. No fevers. No vomiting. - Related Data Allergies/Adverse Reactions: aspirin Allergy (Verified 08/01/17 17:56) Penicillins Allergy (Verified 08/01/17 17:56) Past Medical History - General Information source: Patient - Social History Smoking Status: Never Smoker Frequency of alcohol use: None Drug Abuse: None Family History: Reviewed & Not Pertinent, Arthritis, CVA, DM, Hypertension, Malignancy Patient has suicidal ideation: No Patient has homicidal ideation: No - Past Medical History Cardiac Medical History: Denies: Hx Coronary Artery Disease, Hx Heart Attack, Hx Hypertension Pulmonary Medical History: Reports: Hx Asthma - childhood Denies: Hx Bronchitis, Hx COPD, Hx Pneumonia Neurological Medical History: Reports: Hx Migraine, Hx Seizures Endocrine Medical History: Reports: Hx Hypothyroidism Renal/ Medical History: Denies: Hx Peritoneal Dialysis GI Medical History: Reports: Hx Gastroesophageal Reflux Disease Musculoskeletal Medical History: Denies Hx Arthritis Psychiatric Medical History: Reports: Hx Depression Past Surgical History: Reports: Hx Oral Surgery - Immunizations Immunizations up to date: Yes Hx Diphtheria, Pertussis, Tetanus Vaccination: Yes Review of Systems - Review of Systems Constitutional: denies: Chills, Fever EENT: Nose congestion, Sinus pressure Cardiovascular: denies: Chest pain, Dyspnea Respiratory: denies: Cough, Short of breath -: Yes All other systems reviewed and negative Physical Exam - Vital signs Vitals: Temp Pulse BP Pulse Ox 98.4 F 80 145/75 H 100 05/02/19 02:57 05/02/19 02:57 05/02/19 02:57 05/02/19 02:57 Interpretation: Normal - General General appearance: Appears well, Alert - HEENT Head: Normocephalic, Atraumatic Eyes: Normal Pupils: PERRL Mouth/Lips: Other - Patient has tenderness and some mild swelling of the right lateral lower face. Adjacent to the tender tooth. Mucous membranes: Moist Teeth diagram: 1 - This tooth is tender with adjacent gum swelling. It appears patient may have a small apical abscess. No large abscess amenable to draining Pharynx: Normal Neck: Normal - Respiratory Respiratory status: No respiratory distress Chest status: Nontender Breath sounds: Normal Chest palpation: Normal - Cardiovascular Rhythm: Regular Heart sounds: Normal auscultation Murmur: No - Abdominal Inspection: Normal Distension: No distension Bowel sounds: Normal Tenderness: Nontender Organomegaly: No organomegaly - Back Back: Normal, Nontender - Extremities General upper extremity: Normal inspection, Nontender, Normal color, Normal ROM, Normal temperature General lower extremity: Normal inspection, Nontender, Normal color, Normal ROM, Normal temperature, Normal weight bearing. No: Fili's sign - Neurological Neuro grossly intact: Yes Cognition: Normal Orientation: AAOx4 [place] Coma Scale Eye Opening: Spontaneous [place] Coma Scale Verbal: Oriented [place] Coma Scale Motor: Obeys Commands [place] Coma Scale Total: 15 Speech: Normal Motor strength normal: LUE, RUE, LLE, RLE Sensory: Normal - Psychological Associated symptoms: Normal affect, Normal mood - Skin Skin Temperature: Warm Skin Moisture: Dry Skin Color: Normal Course - Re-evaluation Re-evalutation: 05/02/19 09:26 I performed an inferior alveolar block on the patient. This was done on the right side. She had good anesthesia with 3 cc of injected Marcaine with epinephrine. Use a 27-gauge needle. No complications. She tolerated the procedure well. - Vital Signs Vital signs: Temp Pulse Resp BP Pulse Ox 98.5 F 81 18 144/78 H 100 05/02/19 04:58 05/02/19 04:58 05/02/19 04:58 05/02/19 04:58 05/02/19 04:58 Discharge - Discharge Clinical Impression: Dental caries, Dental abscess Headache Qualifiers: Headache type: unspecified Headache chronicity pattern: acute headache Intractability: intractable Qualified Code(s): R51 - Headache Condition: Stable Disposition: HOME, SELF-CARE Instructions: Oral Narcotic Medication ([facility]), Headache ([facility]) Additional Instructions: Please call your dentist today. It is very important that you see your dentist as soon as possible. Prescriptions: Ondansetron [Zofran Odt 4 mg Tablet] 4 mg PO Q4HP PRN #30 tab.rapdis PRN Reason: Clindamycin HCl 300 mg PO QID 10 Days #30 capsule Oxycodone HCl/Acetaminophen [Percocet 5-325 mg Tablet] 1 tab PO Q4 3 Days #15 tab
[2019-05-02 09:43] VITALS: BP 117/63
== END 2019-05-02 09:43 | disposition home or self-care (01) ==
LOC: ER 02:52
PROC: 3E0T3BZ Introduction of Anesthetic Agent into Peripheral Nerves and Plexi, Percutaneous Approach (ICD-10-PCS; principal; 2019-05-02)
PROC: 3E0T33Z Introduction of Anti-inflammatory into Peripheral Nerves and Plexi, Percutaneous Approach (ICD-10-PCS; 2019-05-02)
DX: K02.9 Dental caries, unspecified (principal); K04.7 Periapical abscess without sinus; R51 Headache; K08.89 Other specified disorders of teeth and supporting structures; J45.909 Unspecified asthma, uncomplicated
CPT/HCPCS: 99282; 64400; J3490

== ENCOUNTER 2019-06-19 23:28 | Emergency (ER) | payer BC ==
[2019-06-20] MEDS ORDERED: DICYCLOMINE HCL 10 MG CAPSULE PO ONE (01:00)
[2019-06-20] MEDS ORDERED: NORMAL SALINE 1000 ML 1,000 ML IV ONE (01:00)
[2019-06-20] MEDS ORDERED: ONDANSETRON HCL INJ/PF 4 MG/2 ML SDV IV ONE (01:00)
--- NOTE | 2019-06-20 01:03 | ER Document Report ---
ED General - General Chief Complaint: Abdominal Pain Stated Complaint: STOMACH ACHE Time Seen by Provider: 06/20/19 00:48 TRAVEL OUTSIDE OF THE [place] IN LAST 30 DAYS: No - HPI Notes: This is a 23-year-old female who presents today with a complaint of nausea, vomiting, diarrhea, abdominal cramps for the past 2 days. Patient states that she thinks that she has a stomach bug. Family members are also sick with a stomach virus recently. She denies any fever or chills. Describes her symptoms as mild. Denies any weakness or dizziness. There are no obvious aggravating or relieving factors. - Related Data Allergies/Adverse Reactions: aspirin Allergy (Verified 08/01/17 17:56) Penicillins Allergy (Verified 08/01/17 17:56) Past Medical History - Social History Smoking Status: Never Smoker Chew tobacco use (# tins/day): No Frequency of alcohol use: None Drug Abuse: None Family History: Reviewed & Not Pertinent, Arthritis, CVA, DM, Hypertension, Malignancy Patient has suicidal ideation: No Patient has homicidal ideation: No - Past Medical History Cardiac Medical History: Denies: Hx Coronary Artery Disease, Hx Heart Attack, Hx Hypertension Pulmonary Medical History: Reports: Hx Asthma - childhood Denies: Hx Bronchitis, Hx COPD, Hx Pneumonia Neurological Medical History: Reports: Hx Migraine, Hx Seizures Endocrine Medical History: Reports: Hx Hypothyroidism Renal/ Medical History: Denies: Hx Peritoneal Dialysis GI Medical History: Reports: Hx Gastroesophageal Reflux Disease Musculoskeletal Medical History: Denies Hx Arthritis Psychiatric Medical History: Reports: Hx Depression Past Surgical History: Reports: Hx Oral Surgery - Immunizations Immunizations up to date: Yes Hx Diphtheria, Pertussis, Tetanus Vaccination: Yes Review of Systems - Review of Systems Constitutional: denies: Fever Gastrointestinal: Abdominal pain, Diarrhea, Nausea, Vomiting Neurological/Psychological: denies: Headaches -: Yes All other systems reviewed and negative Physical Exam - Vital signs Vitals: Temp Pulse Resp BP Pulse Ox 97.8 F 98 16 118/78 100 06/19/19 23:32 06/19/19 23:32 06/19/19 23:32 06/19/19 23:32 06/19/19 23:32 - General General appearance: Appears well, Alert - Respiratory Respiratory status: No respiratory distress Chest status: Nontender Breath sounds: Normal Chest palpation: Normal - Cardiovascular Rhythm: Regular Heart sounds: Normal auscultation Murmur: No - Abdominal Inspection: Normal Distension: No distension Bowel sounds: Normal Tenderness: Tender - There is very minimal epigastric tenderness. Organomegaly: No organomegaly - Neurological Neuro grossly intact: Yes Cognition: Normal Orientation: AAOx4 [place] Coma Scale Eye Opening: Spontaneous [place] Coma Scale Verbal: Oriented [place] Coma Scale Motor: Obeys Commands [place] Coma Scale Total: 15 Speech: Normal Motor strength normal: LUE, RUE, LLE, RLE Sensory: Normal - Psychological Associated symptoms: Normal affect, Normal mood - Skin Skin Temperature: Warm Skin Moisture: Dry Skin Color: Normal Course - Re-evaluation Re-evalutation: 06/20/19 01:03 Differentiated senseless gastroenteritis versus food poisoning versus dehydration versus electrolyte abnormality. Pancreatitis is less likely. Will check basic labs. Will hydrate patient. 06/20/19 01:58 Patient refused IV fluids. She says she feels better. Patient reevaluated. She feels better. Labs unremarkable. She is stable for discharge. - Vital Signs Vital signs: Temp Pulse Resp BP Pulse Ox 97.8 F 98 16 118/78 100 06/19/19 23:32 06/19/19 23:32 06/19/19 23:32 06/19/19 23:32 06/19/19 23:32 - Laboratory Result Diagrams: 06/20/19 01:18 06/20/19 01:18 Laboratory results interpreted by me: 06/20/19 01:18 Hgb 11.3 L MCV 75 L MCH 23.5 L MCHC 31.2 L RDW 17.6 H Discharge - Discharge Clinical Impression: Gastroenteritis Condition: Good Disposition: HOME, SELF-CARE Instructions: Gastroenteritis (adult) ([facility]) Additional Instructions: Follow-up with your doctor. Prescriptions: Dicyclomine HCl [Bentyl 20 mg Tablet] 20 mg PO QID PRN #20 tablet PRN Reason: Abdominal Cramping Ondansetron [Zofran Odt 4 mg Tablet] 1 - 2 tab PO Q4H PRN #15 tab.rapdis PRN Reason: For Nausea/Vomiting Referrals: [facility] [NO LOCAL MD] - Follow up as needed
[2019-06-20 01:41] LABS: ABSOLUTE EOSINOPHILS # (AUTO) 0.1 10^3/uL (0.0-0.6); ABSOLUTE LYMPHOCYTES (AUTO) 3.3 10^3/uL (0.5-4.7); ABSOLUTE MONOCYTES (AUTO) 0.5 10^3/uL (0.1-1.4); ABSOLUTE NEUT (AUTO) 4.9 10^3/uL (1.7-8.2); BASOPHILS % (AUTO) 0.6 % (0-2); EOSINOPHILS % (AUTO) 0.8 % (0-6); HEMATOCRIT 36.1 % (36.0-47.0); HEMOGLOBIN 11.3 g/dL (12.0-15.5); LYMPHOCYTES % (AUTO) 37.2 % (13-45); MEAN CORPUSCULAR HEMOGLOBIN 23.5 pg (27.0-33.4); MEAN CORPUSCULAR HGB CONC 31.2 g/dL (32.0-36.0); MEAN CORPUSCULAR VOLUME 75 fl (80-97); MONOCYTES % (AUTO) 5.8 % (3-13); PLATELET COUNT 210 10^3/uL (150-450); RED BLOOD COUNT 4.79 10^6/uL (3.72-5.28); RED CELL DISTRIBUTION WIDTH 17.6 % (11.5-14.0); SEGMENTED NEUTROPHILS % (AUTO) 55.6 % (42-78); TOTAL CELLS COUNTED % (AUTO) 100 %; WHITE BLOOD COUNT 8.7 10^3/uL (4.0-10.5)
[2019-06-20] MEDS ORDERED: ONDANSETRON 4 MG TAB.RAPDIS PO ONE (01:42)
[2019-06-20 01:49] LABS: ALBUMIN 3.7 g/dL (3.5-5.0); ALKALINE PHOSPHATASE 82 U/L (38-126); ANION GAP 7 (5-19); ASPARTATE AMINO TRANSFERASE 18 U/L (14-36); BILIRUBIN,DIRECT 0.1 mg/dL (0.0-0.4); BILIRUBIN,TOTAL 0.2 mg/dL (0.2-1.3); BLOOD UREA NITROGEN 14 mg/dL (7-20); CALCIUM 9.4 mg/dL (8.4-10.2); CARBON DIOXIDE 25 mmol/L (22-30); CHLORIDE 107 mmol/L (98-107); GLUCOSE 105 mg/dL (75-110); POTASSIUM 4.2 mmol/L (3.6-5.0); TOTAL PROTEIN 6.9 g/dL (6.3-8.2)
[2019-06-20 02:16] LABS: APPEARANCE,URINE SLIGHTLY-CLOUDY; BILIRUBIN,URINE NEGATIVE (NEGATIVE); COLOR,URINE YELLOW; GLUCOSE, URINE NEGATIVE (NEGATIVE); KETONES,URINE NEGATIVE (NEGATIVE); LEUKOCYTE ESTERASE,URINE SMALL (NEGATIVE); NITRITE,URINE NEGATIVE (NEGATIVE); PROTEIN,URINE NEGATIVE (NEGATIVE); URINE SPECIFIC GRAVITY 1.025; UROBILINOGEN,URINE NEGATIVE mg/dL (<2.0)
[2019-06-20 02:37] VITALS: BP 106/72
== END 2019-06-20 02:37 | disposition home or self-care (01) ==
LOC: ER 23:28
DX: K52.9 Noninfective gastroenteritis and colitis, unspecified (principal); R10.9 Unspecified abdominal pain; R11.2 Nausea with vomiting, unspecified; J45.909 Unspecified asthma, uncomplicated
CPT/HCPCS: 36415; 80053; 81001; 83690; 84703; 85025; J3490; S0119